=== PATIENT | female | born 1945 | race American Indian/Alaskan Native ===

== ENCOUNTER 2018-08-20 12:45 | Outpatient (CLI) | payer MEDICARE ==
--- NOTE | 2018-08-24 15:15 | PET Report ---
PET/CT:08/20/18 12:45:00 CLINICAL: Breast cancer staging. No comparison studies. RADIOPHARMACEUTICAL: 12.958mCi F18-FDG. TECHNIQUE- Following intravenous injection of F-18 FDG and an approximately 60 minute uptake period, CT and PET images from the mid skull to the upper thighs were acquired with the patient in the fasted state. No contrast was administered. The CT protocol used for this PET CT study is designed for attenuation correction and anatomic localization of PET abnormalities. This process developer CT is not desired to produce and cannot replace, [id number] diagnostic CT scans with specific imaging protocols for different body parts and indications. Plasma glucose at the time of this test: 83g/dl. The standardized uptake values (SUV) are normalized to patient body weight and indicate the highest activity concentration (SUV max) in a given disease site. FINDINGS: Brain--Physiologic FDG uptake in the visualized regions of the brain. Neck--Physiologic FDG uptake in mucosal structures. No mass or lymphadenopathy. Chest--2 foci of FDG uptake in the right infraclavicular space adjacent to the second rib with SUV of 4. No distinct mass or lymph nodes are identified. Physiologic FDG uptake in mediastinal blood pool and myocardium. Status post left mastectomy. An FDG avid right upper outer breast mass with a biopsy clip and SUV 13.6. Margins are poorly defined and the mass measures approximately 1.5 cm. A second focus of abnormal FDG uptake in the lower outer right breast this should be 4.5 and no distinct mass identified. Status post left mastectomy. No left chest wall mass. Lungs--No abnormal uptake. However, abnormal multilobar bilateral patchy lung opacities, greater on the right than the left. A non-FDG avid 6 mm right upper lobe lung nodule with a partially circumscribed margin. No other pulmonary nodule or mass. Pleura/pericardium--No abnormal uptake. Thoracic nodes--suspicious single focus of FDG uptake in the inferior right axilla with SUV 8.5. Several small lymph nodes are identified in this area. Hepatobiliary--No abnormal uptake. Liver background SUV mean, as a reference for comparing FDG studies, is 2.9 . No liver mass. Spleen--No abnormal uptake. Pancreas--No abnormal uptake. Adrenal Glands--No abnormal uptake. Kidneys/Ureters/Bladder--No abnormal uptake. Abdominopelvic Nodes--No abnormal uptake. Bowel/Peritoneum/Mesentery--No abnormal uptake.Probably benign physiologic uptake in small bowel in the midline anterior pelvis with SUV 6.2. A non-FDG avid right colon anastomosis. Pelvic organs--No abnormal uptake. Bones/Soft Tissues--No abnormal uptake and no suspicious bone lesion. Scoliosis and extensive degenerative disc disease at multiple levels. Osteoarthritis of the left shoulder. IMPRESSION- 1. FDG avid right upper outer breast cancer and a second suspicious focus of uptake in the lower outer right breast. 2. Right infraclavicular FDG uptake and right axillary trena uptake suspicious for trena metastasis. 3. No evidence of hepatic or skeletal metastasis. 4. A 6 mm nonspecific non-FDG avid right upper lobe lung nodule. 5. Extensive bilateral multilobar non-FDG avid patchy lung opacities probably represent a benign process.
== END 2018-08-20 12:46 | disposition home or self-care (01) ==
LOC: PET 12:45
PROVIDERS: ATTEND Internal Medicine Hematology & Oncology
DX: C50.411 Malignant neoplasm of upper-outer quadrant of right female breast (principal); M19.012 Primary osteoarthritis, left shoulder; F02.81 Dementia in other diseases classified elsewhere, unspecified severity, with behavioral disturbance; Z85.528 Personal history of other malignant neoplasm of kidney; Z85.3 Personal history of malignant neoplasm of breast
CPT/HCPCS: 78815; 82962; A9552